=== PATIENT | male | born 1970 | race Caucasian/White ===

== ENCOUNTER → 2021-03-18 | Outpatient (CLI) | payer OTHER ==
[2015-12-17 02:40] VITALS: BP 162/107
--- NOTE | 2021-03-18 16:54 | KCIC ---
4 views the right knee for knee pain for one month, felt a pop while walking downstairs. FINDINGS: There is no fracture, dislocation, or acute osseous abnormality identified. Joints and soft tissues are grossly unremarkable. Vascular calcifications are seen in multiple distributions. No sup rapatellar joint effusion. IMPRESSION: 1. No acute osseous abnormality. Electronically signed by: Akil Montoya MD (03/18/2021 4:51 PM) [id number]
== END ==
LOC: KCIC 12:48
DX: M25.561 Pain in right knee (principal); W19.XXXA Unspecified fall, initial encounter
CPT/HCPCS: 73564

== ENCOUNTER → 2021-04-02 | Outpatient (CLI) | payer OTHER ==
[2015-12-17 02:40] VITALS: BP 162/107
--- NOTE | 2021-04-03 09:45 | KCIC ---
EXAM: MRI PELVIS WO 04/02/2021 1:20 PM CLINICAL INDICATION: Right hip pain. New onset right thigh, hip, and groin pain since January. Fall. COMPARISON: None TECHNIQUE: Multiplanar multisequence MR images of the pelvis without contrast FINDINGS: Bones and cartilage: There is no acute fracture. Marrow signal is normal. Small defects at the anteri or superior chondral labral junction bilaterally. No large cartilage defects. Probable small hemangio ma in the left femoral neck. The sacroiliac joints and pubic symphysis are unremarkable. There are sm all disc bulges at L4-L5 and L5-S1 with probable mild bilateral foraminal narrowing at L4-L5. Muscles, ligaments, and tendons: There is mild left hamstrings tendinopathy. Bilateral gluteus medius and minimus tendons are intact. The rectus femoris tendons, adductor, iliopsoas tendons are intact. Muscles are normal in signal and bulk. Spaces are normal. No bursitis. Other: There is sigmoid diverticulosis. No inguinal lymphadenopathy. Subcutaneous soft tissues normal . IMPRESSION: 1. No acute osseous abnormality or significant degenerative joint disease of the hips. 2. Mild left hamstrings tendinopathy. 3. Mild degenerative disc disease in the lower lumbar spine, incompletely evaluated. 4. Sigmoid diverticulosis. Electronically signed by: Shelly Alves MD (04/03/2021 9:42 AM) [id number]
== END ==
LOC: KCIC MRI 13:09
PROVIDERS: ATTEND Family Medicine
DX: M25.852 Other specified joint disorders, left hip (principal); M25.851 Other specified joint disorders, right hip; K57.30 Diverticulosis of large intestine without perforation or abscess without bleeding; W19.XXXA Unspecified fall, initial encounter; Y92.009 Unspecified place in unspecified non-institutional (private) residence as the place of occurrence of the external cause; M51.36 Other intervertebral disc degeneration, lumbar region
CPT/HCPCS: 72195